=== PATIENT | female | born 1990 | race African-American/Black ===

== ENCOUNTER 2016-11-26 23:06 | Emergency (ER) | payer MEDICAID ==
[~2016-11-26] VITALS: Ht 177.8 cm; Wt 118.0 kg
[2016-11-27] LABS: GLUCOSE URINE NEGATIVE (NEGATIVE); KETONES URINE NEGATIVE (NEGATIVE); LEUKOCYTE ESTERASE URINE 2+ (NEGATIVE); NITRITE URINE NEGATIVE (NEGATIVE); OCCULT BLOOD URINE 3+ (NEGATIVE); PH URINE 7.5 (4.5-8.0); PROTEIN URINE 3+ (NEGATIVE); SPECIFIC GRAVITY URINE 1.023 (1.005-1.030)
[2016-11-27] MEDS ORDERED: IBUPROFEN 600MG TABLET PO ONE
[2016-11-27 00:02] LABS: CLARITY URINE CLOUDY (CLEAR); COLOR URINE YELLOW (YELLOW)
[2016-11-27 00:03] VITALS: BP 130/76
[2016-11-27] MEDS ORDERED: NITROFURANTOIN 100MG M/M CAPSULE PO ONE (00:15)
[2016-11-27] MEDS ORDERED: PHENAZOPYRIDINE HCL 200MG TABLET PO ONE (00:15)
[2016-11-27 00:37] LABS: SQUAMOUS EPITHELIAL CELL URINE FEW /lpf (RARE/1+)
[2016-11-27 00:45] LABS: WBC URINE 15-25 /hpf (0-2)
[2016-11-27 00:46] LABS: BACTERIA URINE NONE SEEN; RBC URINE 50-100 /hpf (0-2)
== END 2016-11-27 01:06 | disposition home or self-care (01) ==
LOC: ER 23:15
DX: N39.0 Urinary tract infection, site not specified (principal)
CPT/HCPCS: 81001; 81003; 81025; 99284

== ENCOUNTER 2017-01-01 23:59 | Emergency (ER) | payer MEDICAID ==
[~2017-01-01] VITALS: Ht 177.8 cm; Wt 114.0 kg
[2017-01-02 02:12] LABS: BASOPHILS % 0.3 % (0.0-2.0); DIFFERENTIAL COMMENT 1; EOSINOPHILS % 1.9 % (0.0-5.0); HEMATOCRIT. 34.8 % (36.0-48.0); HEMOGLOBIN. 10.8 g/dL (12.0-16.0); LYMPHOCYTES % 30.4 % (20.0-50.0); MEAN CORPUSCULAR HEMOGLOBIN 21.3 pg (28.0-32.0); MEAN CORPUSCULAR HGB CONC 30.9 g/dL (31.0-37.0); MEAN CORPUSCULAR VOLUME 68.9 fL (81.0-99.0); MEAN PLATELET VOLUME 8.3 fl (7.4-10.4); MONOCYTES % 6.6 % (2.0-8.0); NEUTROPHILS % 60.8 % (40.0-76.0); PLATELET 274 x1000/uL (130-400); RED BLOOD CELL COUNT 5.05 mill/uL (4.2-5.4); RED CELL DISTRIBUTION WIDTH 16.5 % (11.6-14.6); WHITE BLOOD COUNT 14.4 x1000/uL (4.5-11.0)
[2017-01-02 02:20] LABS: HCG SCREEN NEGATIVE
[2017-01-02 02:52] LABS: INDEX HEMOLYSI 1 (1-3)
[2017-01-02 03:06] LABS: ALANINE AMINOTRANSFERASE 17 IU/L (13-61); ALBUMIN 3.3 g/dL (3.4-5.0); ANION GAP 12; CALCIUM 8.4 mg/dL (8.5-10.1); CARBON DIOXIDE 27 mEq/L (21-32); CHLORIDE 108 mEq/L (98-107); UREA NITROGEN BLOOD 8 mg/dL (7-21); eGFR > 60 mL/min (>60)
[2017-01-02] MEDS ORDERED: IBUPROFEN 800MG TABLET PO ONE (03:45)
[2017-01-02 04:06] VITALS: BP 113/68
== END 2017-01-02 03:57 | disposition home or self-care (01) ==
LOC: ER 01-02 00:02
DX: R07.9 Chest pain, unspecified (principal); R06.02 Shortness of breath; R00.2 Palpitations; J45.909 Unspecified asthma, uncomplicated
CPT/HCPCS: 36415; 71010; 80053; 84703; 85025; 85379; 93005; 99285; Z7610

== ENCOUNTER 2017-06-20 18:44 | Emergency (ER) | payer MEDICAID ==
[~2017-06-20] VITALS: Ht 177.8 cm; Wt 116.0 kg
[2017-06-20 18:51] VITALS: BP 151/80
[2017-06-20] MEDS ORDERED: FLUT1DIS3 IH (18:54)
[2017-06-20] MEDS ORDERED: PROSOL IH (18:54)
== END 2017-06-20 19:15 | disposition left against medical advice (07) ==
LOC: ER 18:44
DX: Z53.21 Procedure and treatment not carried out due to patient leaving prior to being seen by health care provider (principal)

== ENCOUNTER 2017-08-03 21:24 | Emergency (ER) | payer MEDICAID ==
[~2017-08-03] VITALS: Ht 177.8 cm; Wt 132.0 kg
[~2017-08-03 21:24] MED LIST: FLUT1DIS3 IH; PROSOL IH
[2017-08-03] MEDS ORDERED: ONDANSETRON HCL 4MG/2ML VIAL IV STA (22:54)
[2017-08-03] MEDS ORDERED: SODIUM CHLORIDE 0.9% 1,000 ML IV ONE (22:54)
[2017-08-03] MEDS ORDERED: FAMOTIDINE 20MG/2ML VIAL IV STA (22:54)
[2017-08-03] MEDS ORDERED: MAGNESIUM/ALUMINUM HYDROXIDE/SIMETHICONE 30ML UDC PO STA (22:54)
[2017-08-04 00:22] LABS: CHLORIDE 107 mEq/L (98-107)
[2017-08-04 00:30] LABS: BASOPHILS % 0.4 % (0.0-2.0); EOSINOPHILS % 2.3 % (0.0-5.0); HEMATOCRIT. 34.8 % (36.0-48.0); HEMOGLOBIN. 10.7 g/dL (12.0-16.0); LYMPHOCYTES % 25.4 % (20.0-50.0); MEAN CORPUSCULAR HEMOGLOBIN 21.3 pg (28.0-32.0); MEAN CORPUSCULAR VOLUME 69.5 fL (81.0-99.0); MEAN PLATELET VOLUME 8.4 fl (7.4-10.4); MONOCYTES % 5.1 % (2.0-8.0); NEUTROPHILS % 66.8 % (40.0-76.0); PLATELET 302 x1000/uL (130-400); RED BLOOD CELL COUNT 5.01 mill/uL (4.2-5.4); RED CELL DISTRIBUTION WIDTH 16.6 % (11.6-14.6)
[2017-08-04 00:33] LABS: CARBON DIOXIDE 26 mEq/L (21-32)
[2017-08-04 02:17] VITALS: BP 138/79
== END 2017-08-04 02:19 | disposition home or self-care (01) ==
LOC: ER 21:24
DX: K29.70 Gastritis, unspecified, without bleeding (principal); J45.909 Unspecified asthma, uncomplicated
CPT/HCPCS: 36415; 80053; 81025; 83690; 85025; 96361; 96374; 96375; 99285; J2405; J3490; Z7610; J7030

== ENCOUNTER 2017-09-12 13:09 | Emergency (ER) | payer MEDICAID ==
[~2017-09-12] VITALS: Ht 177.8 cm; Wt 127.0 kg
[2017-09-12 13:49] VITALS: BP 134/87
== END 2017-09-12 19:30 | disposition left against medical advice (07) ==
LOC: ER 15:44
DX: J11.1 Influenza due to unidentified influenza virus with other respiratory manifestations (principal); Z53.21 Procedure and treatment not carried out due to patient leaving prior to being seen by health care provider

== ENCOUNTER 2017-11-02 07:56 | Emergency (ER) | payer MEDICAID ==
[~2017-11-02] VITALS: Ht 180.3 cm; Wt 122.0 kg
[2017-11-02] MEDS ORDERED: KETOROLAC 60MG/2ML VIAL IM ONE (10:00)
[2017-11-02 11:55] VITALS: BP 118/57
== END 2017-11-02 12:11 | disposition home or self-care (01) ==
LOC: ER 08:09
DX: J02.9 Acute pharyngitis, unspecified (principal); R09.81 Nasal congestion; J45.909 Unspecified asthma, uncomplicated; Z87.01 Personal history of pneumonia (recurrent)
CPT/HCPCS: 81025; 87070; 87430; 87804; 96372; 99284; J1885; Z7610

== ENCOUNTER 2018-10-03 03:07 | Emergency (ER) | payer MEDICAID ==
[~2018-10-03] VITALS: Ht 180.3 cm; Wt 120.0 kg
[2018-10-03] MEDS ORDERED: IBUPROFEN 600MG TABLET PO STA (04:14)
[2018-10-03 04:48] LABS: BASOPHILS % 0.8 % (0.0-2.0); EOSINOPHILS % 2.9 % (0.0-5.0); HEMATOCRIT. 34.9 % (36.0-48.0); HEMOGLOBIN. 10.9 g/dL (12.0-16.0); LYMPHOCYTES % 27.3 % (20.0-50.0); MEAN CORPUSCULAR HEMOGLOBIN 21.5 pg (28.0-32.0); MEAN CORPUSCULAR VOLUME 68.8 fL (81.0-99.0); MEAN PLATELET VOLUME 8.1 fl (7.4-10.4); MONOCYTES % 4.9 % (2.0-8.0); NEUTROPHILS % 64.1 % (40.0-76.0); PLATELET 306 x1000/uL (130-400); RED BLOOD CELL COUNT 5.07 mill/uL (4.2-5.4); RED CELL DISTRIBUTION WIDTH 16.2 % (11.6-14.6)
[2018-10-03 04:51] LABS: CHLORIDE 106 mEq/L (98-107)
[2018-10-03 06:16] VITALS: BP 121/75
== END 2018-10-03 06:17 | disposition home or self-care (01) ==
LOC: ER 03:07
DX: R09.1 Pleurisy (principal); J45.909 Unspecified asthma, uncomplicated; Z88.0 Allergy status to penicillin
CPT/HCPCS: 36415; 71045; 84484; 85379; 93005; 99284

== ENCOUNTER 2018-10-19 01:25 | Emergency (ER) | payer MEDICAID ==
[~2018-10-19] VITALS: Ht 175.3 cm; Wt 114.0 kg
[2018-10-19 02:38] LABS: CLARITY URINE TURBID (CLEAR); COLOR URINE YELLOW (YELLOW); KETONES URINE NEGATIVE (NEGATIVE); LEUKOCYTE ESTERASE URINE 3+ (NEGATIVE); NITRITE URINE NEGATIVE (NEGATIVE); OCCULT BLOOD URINE 1+ (NEGATIVE); PROTEIN URINE TRACE (NEGATIVE); SPECIFIC GRAVITY URINE 1.027 (1.005-1.030); UROBILINOGEN URINE 0.2 E.U./dL (0.2-1.0)
[2018-10-19] MEDS ORDERED: KETOROLAC 30MG/ML VIAL IV STA (07:30)
[2018-10-19] MEDS ORDERED: SODIUM CHLORIDE 0.9% 1,000 ML IV ONE (07:30)
[2018-10-19 08:09] LABS: BASOPHILS % 0.6 % (0.0-2.0); EOSINOPHILS % 1.8 % (0.0-5.0); HEMATOCRIT. 36.3 % (36.0-48.0); HEMOGLOBIN. 11.3 g/dL (12.0-16.0); LYMPHOCYTES % 22.9 % (20.0-50.0); MEAN CORPUSCULAR HEMOGLOBIN 21.5 pg (28.0-32.0); MEAN PLATELET VOLUME 8.4 fl (7.4-10.4); MONOCYTES % 4.2 % (2.0-8.0); NEUTROPHILS % 70.5 % (40.0-76.0); PLATELET 351 x1000/uL (130-400); RED BLOOD CELL COUNT 5.26 mill/uL (4.2-5.4); RED CELL DISTRIBUTION WIDTH 16.2 % (11.6-14.6)
[2018-10-19 08:10] LABS: CHLORIDE 108 mEq/L (98-107)
[2018-10-19 08:16] LABS: D-DIMER 0.23 mg/L FEU (<0.50); PARTIAL THROMBOPLASTIN TIME 31.2 sec (23.4-31.0); PROTHROMBIN TIME 10.3 sec (9.1-11.1)
[2018-10-19 09:45] LABS: PLATELET ESTIMATE NORMAL
[2018-10-19] MEDS ORDERED: IOHEXOL-350 100 ML BOTTLE ONE (10:53)
[2018-10-19 12:55] VITALS: BP 110/62
== END 2018-10-19 13:01 | disposition home or self-care (01) ==
LOC: ER 01:25
DX: R07.89 Other chest pain (principal); N39.0 Urinary tract infection, site not specified; E66.9 Obesity, unspecified; Z68.37 Body mass index [BMI] 37.0-37.9, adult
CPT/HCPCS: 36415; 71045; 71275; 80053; 81003; 81025; 83880; 84484; 85025; 85379; 85610; 85730; 87077; 87086; 87186; 93005; 96374; 99284; J1885; J7030; Q9967; Z7610

== ENCOUNTER 2020-12-23 13:35 | Observation (INO) | payer MEDICAID | END 2020-12-23 16:40 | disposition home or self-care (01) | LOC: 8 EST LDRP 13:35 → 8 EST A/PP 15:06 | PROVIDERS: ADMIT Obstetrics & Gynecology; ATTEND Obstetrics & Gynecology | DX: O26.852 Spotting complicating pregnancy, second trimester (principal); Z3A.20 20 weeks gestation of pregnancy | CPT/HCPCS: 59025; 76805; G0378; 99281 ==

== ENCOUNTER 2021-01-02 00:15 | Emergency (ER) | payer MEDICAID ==
[~2021-01-02] VITALS: Ht 170.2 cm; Wt 91.0 kg
[2021-01-02 01:18] VITALS: BP 115/71
== END 2021-01-02 01:19 | disposition home or self-care (01) ==
LOC: ER 00:15
DX: O21.8 Other vomiting complicating pregnancy (principal); Z3A.22 22 weeks gestation of pregnancy; Z88.0 Allergy status to penicillin
CPT/HCPCS: 99283

== ENCOUNTER 2021-01-19 00:14 | Observation (INO) | payer MEDICAID ==
[~2021-01-19] VITALS: Ht 177.8 cm; Wt 120.2 kg
[2021-01-19] MEDS ORDERED: PNV1TABL76 MT (01:38)
== END 2021-01-19 01:50 | disposition home or self-care (01) ==
LOC: 8 EST LDRP 00:14
PROVIDERS: ADMIT Obstetrics & Gynecology; ATTEND Obstetrics & Gynecology
DX: O26.892 Other specified pregnancy related conditions, second trimester (principal); R10.9 Unspecified abdominal pain; Z3A.24 24 weeks gestation of pregnancy
CPT/HCPCS: 59025; G0378; 99281